=== PATIENT | male | born 1975 | race Caucasian/White ===

== ENCOUNTER 2017-10-17 13:18 | Inpatient (IN) ==
[2017-10-17 13:21] VITALS: BMI 20.5
[2017-10-17] MEDS ORDERED: SODIUM CHLORIDE 1,000 ML IV STA (13:36)
[2017-10-17] MEDS ORDERED: VANCOMYCIN 1 GM in SODIUM CHLORIDE 250 ML IV STA (13:37)
[2017-10-17] MEDS ORDERED: MORPHINE 2 MG/ML SYRINGE IVP STA (13:39)
[2017-10-17] MEDS ORDERED: ZOFRAN 4 MG/2 ML IVP STA (13:39)
--- NOTE | 2017-10-17 14:13 | CT ---
EXAM: CT scan of the left knee without contrast HISTORY: Trauma, swelling, redness, medial left knee. TECHNIQUE: Helical imaging of the left knee was performed without contrast. Axial images and collado l and sagittal reconstructions were provided for interpretation. FINDINGS: No acute fractures are seen. The patella appears intact. There is no joint effusion. The proximal fibula appears intact. There does appear to be soft tissue swelling seen along the medial s oft tissues of the left knee. No obvious fluid collections are seen. IMPRESSION: No acute fracture dislocation seen within the left knee. Soft tissue swelling seen along the medial aspect of the left knee.
[2017-10-17] MEDS ORDERED: TORADOL IVP STA (14:26)
[2017-10-17] MEDS ORDERED: DILAUDID IVP STA ×2 (15:05→18:15)
--- NOTE | 2017-10-17 16:31 | ED.PDOC ---
General ED Provider: Dr. LACY REBOLLEDO-ER Chief Complaint: Abscess Stated Complaint: karissa got an abscess--this happened last year--he ges mosquito bites that get infected Time Seen by Physician: 13:20 Mode of Arrival: Wheelchair Information Source: Patient Exam Limitations: No limitations Nursing and Triage Documentation Reviewed and Agree: Yes Reviewed sepsis parameters & appropriate labs ordered?: Yes System Inflammatory Response Syndrome: Not Applicable Sepsis Protocol: For patient's 13 years and over: Temp is 96.8 and below OR 101 and greater Pulse >90 BPM Resp >20/minute Acutely Altered Mental Status Are patient's symptoms suggestive of a new infection, such as: -Pneumonia -Skin, Soft Tissue -Endocarditis -UTI -Bone, Joint Infection -Implantable Device -Acute Abdominal Infection -Wound Infection -Meningitis -Blood Stream Catheter Infection -Unknown Skin Complaint Exam - Skin/Soft Tissue Complaint/Exam Onset/Duration: 3 days Symptoms Are: Still present Timing: Constant Initial Severity: Mild Current Severity: Moderate Location: right thigh Character: Reports: Redness, Swelling, Raised, Painful Aggravating: Reports: Touch Associated Signs and Symptoms: Reports: Fever, Chills, Tenderness Related History: Reports: Recent trauma Related Surgical History: Reports: None Recent Exposure to Others w/Similar Symptoms: No Skin Findings: Present: Erythema, Induration, Fluctuant mass Joint Tenderness Present: No Differential Diagnoses: Abscess, Cellulitis, Infection Review of Systems - Review Of Systems Constitutional: Reports: Chills, Fever, Weakness Eyes: Reports: No symptoms Ears, Nose, Mouth, Throat: Reports: No symptoms Respiratory: Reports: No symptoms Cardiac: Reports: No symptoms GI: Reports: No symptoms : Reports: No symptoms Musculoskeletal: Reports: No symptoms Skin: Reports: Lumps Neurological: Reports: No symptoms Endocrine: Reports: No symptoms Hematologic/Lymphatic: Reports: No symptoms All Other Systems: Reviewed and Negative Past Medical History - Past Medical History Previously Healthy: No Endocrine: Reports: Unknown Cardiovascular: Reports: Unknown Respiratory: Reports: Unknown Hematological: Reports: Unknown Gastrointestinal: Reports: Unknown Genitourinary: Reports: Unknown Neuro/Psych: Reports: Unknown Musculoskeletal: Reports: Unknown Cancer: Reports: Unknown - Surgical History General Surgical History: Reports: Unknown - Family History Family History: Reports: Unknown - Social History Smoking Status: Current every day smoker Hx Substance Use: No Alcohol Screening: None Physical Exam - Physical Exam Appearance: Well-appearing, No pain distress, Well-nourished Pain Distress: Moderate Eyes: BHUPENDRA, EOMI, Conjunctiva clear ENT: Ears normal, Nose normal, Oropharynx normal Neck: Supple Respiratory: Airway patent Cardiovascular: RRR GI/: Soft Musculoskeletal: Normal strength, ROM intact, No edema, No calf tenderness Skin: Warm Neurological: Sensation intact Psychiatric: Affect appropriate, Mood appropriate Interpretation - Radiology Interpretation Radiology Interpretation By: Radiologist Radiology Results: Negative Physician Notification - Case Discussed Physician Notified: dr [email or web address] Time of Notification: 16:32 Critical Care Note - Critical Care Note Total Time (mins): 0 Course - Course Hematology/Chemistry: 10/17/17 13:53 10/17/17 13:53 Orders, Labs, Meds: Lab Review 10/17/17 10/17/17 13:53 13:53 WBC 6.44 RBC 4.11 L Hgb 11.8 L Hct 34.7 L MCV 84.4 MCH 28.7 MCHC 34.0 RDW Coeff of Rosalie 15.4 H Plt Count 210 Immature Gran % (Auto) 0.3 Neut % (Auto) 73.1 Lymph % (Auto) 4.7 L [place] % (Auto) 0.6 Eos % (Auto) 21.1 H Baso % (Auto) 0.2 Immature Gran # (Auto) 0.0 Neut # (Auto) 4.7 Lymph # (Auto) 0.3 L [place] # (Auto) 0.0 L Eos # (Auto) 1.4 H Baso # (Auto) 0.0 Sodium 137 Potassium 3.8 Chloride 107 Carbon Dioxide 19 L Anion Gap 14.8 BUN 15 Creatinine 0.91 Estimated GFR (MDRD) 91.00 BUN/Creatinine Ratio 16.48 Glucose 109 H Calcium 8.5 Total Bilirubin 0.5 AST 17 ALT 12 Alkaline Phosphatase 44 L Total Protein 7.2 Albumin 3.3 L Globulin 3.9 Albumin/Globulin Ratio 0.85 Orders Category Date Time Status ED IV/MEDIPORT/POWERPORT .ONCE EMERGENCY 10/17/17 13:36 Active BLOOD CULTURE (ED ONLY) Stat LAB 10/17/17 13:53 Received CBC W/ AUTO DIFF Stat LAB 10/17/17 13:53 Completed COMPREHENSIVE METABOLIC PANEL Stat LAB 10/17/17 13:53 Completed URINALYSIS C & S IF INDICATED Stat LAB 10/17/17 13:36 Uncollected 0.9 % Sodium Chloride [Saline Flush] MEDS 10/17/17 13:36 Ordered 1 syr IVF PRN PRN Hydromorphone HCl [Dilaudid] MEDS 10/17/17 15:05 Discontinued 1 mg IVP ONCE STA Ketorolac Tromethamine [Toradol] MEDS 10/17/17 14:26 Discontinued 30 mg IVP ONCE STA Morphine Sulfate [Morphine 2 mg/ml Syringe] MEDS 10/17/17 13:39 Discontinued 2 mg IVP ONCE STA Ondansetron HCl/Pf [Zofran 4 mg/2 ml] MEDS 10/17/17 13:39 Discontinued 4 mg IVP ONCE STA Sodium Chloride 0.9% [Sodium Chloride] 1,000 ml MEDS 10/17/17 13:36 Active IV 100 mls/hr Vancomycin HCl [Vancomycin] 1 gm MEDS 10/17/17 13:37 Discontinued 0.9 % Sodium Chloride [Sodium Chloride] [address] KNEE LEFT WITHOUT CONTRAST Stat RADS 10/17/17 13:37 Completed Medications Generic Name Dose Route Start Last Admin Trade Name Freq PRN Reason Stop Dose Admin Sodium Chloride 1,000 mls @ 100 mls/hr 10/17/17 13:36 10/17/17 14:11 Sodium Chloride IV 10/17/17 23:35 100 mls/hr .Q10H STA Administration Sodium Chloride 1 syr 10/17/17 13:36 10/17/17 14:11 Saline Flush IVF 1 syr PRN PRN Administration To flush IV Discontinued Medications Generic Name Dose Route Start Last Admin Trade Name Freq PRN Reason Stop Dose Admin Hydromorphone HCl 1 mg 10/17/17 15:05 10/17/17 15:12 Dilaudid IVP 10/17/17 15:06 1 mg ONCE STA Administration Vancomycin HCl 1 gm/ Sodium 250 mls @ 250 mls/hr 10/17/17 13:37 10/17/17 14: 11 Chloride IV 10/17/17 14:36 250 mls/hr ONCE STA Administration Ketorolac Tromethamine 30 mg 10/17/17 14:26 10/17/17 14:32 Toradol IVP 10/17/17 14:27 30 mg ONCE STA Administration Morphine Sulfate 2 mg 10/17/17 13:39 10/17/17 14:09 Morphine 2 Mg/Ml Syringe IVP 10/17/17 13:40 2 mg ONCE STA Administration Ondansetron HCl 4 mg 10/17/17 13:39 10/17/17 14:08 Zofran 4 Mg/2 Ml IVP 10/17/17 13:40 4 mg ONCE STA Administration Vital Signs: Temp Pulse Resp BP Pulse Ox 10/17/17 13:19 103.5 F H 104 H 16 97/60 97 Departure - Departure Time of Disposition: 16:32 Disposition: ADMITTED INPATIENT Discharge Problem: Abscess Instructions: Abscess (ED) Condition: Good Pt referred to PMD for follow-up: No IPMP verified?: No Allergies/Adverse Reactions: Allergies Sulfa (Sulfonamide Antibiotics) Adverse Reaction (Verified 10/17/17 13:21) Home Medications: Ambulatory Orders 1 [No Reported Medications] 10/17/17 Disposition Discussed With: Patient
[2017-10-17] MEDS ORDERED: TYLENOL PO PRN (16:33)
[2017-10-17] MEDS ORDERED: DILAUDID IVP PRN (16:36)
[2017-10-17] MEDS ORDERED: ZOFRAN 4 MG/2 ML IVP PRN (16:37)
[2017-10-17] MEDS ORDERED: SODIUM CHLORIDE 1,000 ML IV SCH (17:00)
[2017-10-17] MEDS ORDERED: DILAUDID 4 MG/ML SYRINGE ONE (18:32)
[2017-10-17] MEDS ORDERED: ROCEPHIN ONE (18:33)
[2017-10-17] MEDS ORDERED: SODIUM CHLORIDE 50 ML IV ONE (18:42)
[2017-10-17] MEDS: ROCEPHIN 1 GM in SODIUM CHLORIDE 50 ML IV SCH (19:24)
[2017-10-17] MEDS: VANCOMYCIN 1 GM in SODIUM CHLORIDE 250 ML IV SCH (20:46)
[2017-10-18] MEDS: NORCO 7.5-325 PO PRN ×3 (04:36→17:40)
[2017-10-18] MEDS ORDERED: DILAUDID 2 MG/ML SYRINGE IVP PRN (07:07)
[2017-10-18] MEDS: LOVENOX SUBCUT SCH (09:30)
[2017-10-18] MEDS: ROCEPHIN 1 GM in SODIUM CHLORIDE 50 ML IV SCH (09:30)
[2017-10-18] MEDS: VANCOMYCIN 1 GM in SODIUM CHLORIDE 250 ML IV SCH ×2 (10:41→20:46)
[2017-10-18] MEDS ORDERED: BENADRYL PO STA (15:10)
[2017-10-18] MEDS: ATARAX PO SCH (20:46)
[2017-10-19] MEDS: ATARAX PO SCH ×4 (00:37→17:02)
--- NOTE | 2017-10-19 08:56 | DI ---
EXAM: Radiographs, right foot HISTORY: Right foot pain, gouty arthritis. COMPARISON: None available. TECHNIQUE: Three views. FINDINGS: Bone mineralization is normal. There is no fracture or dislocation. Tiny erosions seen o n both sides of the second distal interphalangeal joint. Question similar findings at the third dist al interphalangeal joint. The joint spaces are maintained. No focal soft tissue abnormality is seen. IMPRESSION: Articular surface erosions of the second IP joint and possibly the third DIP joint which could be due to inflammatory arthritis.
[2017-10-19] MEDS: LOVENOX SUBCUT SCH (09:13)
[2017-10-19] MEDS: ROCEPHIN 1 GM in SODIUM CHLORIDE 50 ML IV SCH (09:13)
[2017-10-19] MEDS: VANCOMYCIN 1 GM in SODIUM CHLORIDE 250 ML IV SCH ×2 (10:16→19:59)
--- NOTE | 2017-10-19 10:53 | PN ---
DATE OF SERVICE: 10/18/17 SUBJECTIVE: The had been scratching and itching. He was given Benadryl but that did not help. This patient has multiple scabbed areas left forearm, forehead and also upper back as well as right. He also has a raised red area more or less rounded on the left medial knee. He had some redness on the knee but he claimed to have fallen and landed on his left knee. The redness in the left knee is less today than yesterday. This had been marked. He also has a red raised area slightly bigger about bigger than a quarter on the lateral thigh. That has drained today. The redness is less also. A culture will be done on that area. His right side of the face is somewhat prominent compared to the left but I'm no t sure wether that is just natural appearance. He claims that the scab areas on the forearm, hands, forearm and arm were do to mosquito bites. He was outside last weekend. The area in the thigh began some three days prior to presentation yesterday to the emergency room. The patient's is alert and oriented times four. He is complaining of pain and itching. I do not see any erythema or popular eruptions that would indicate some allergy from the antibiotic that he is receiving. He also had admitted that he had been itching and scratching himself prior to presentation to the hospital. The patient admits smoking. LUNGS: No rales although breath sounds are somewhat diminished. HEART: Normal sinus rhythm NECK: no masses and bruit ABDOMEN: No tenderness LOWER EXTREMITY: The patient also has scabbed areas on both legs. He has some deformities in the right big toe slightly bigger than the left side. He claims that he has pain and swelling from time to time and he felt like he might have gouty arthritis. I told him that I would try to make a diagnosis and if that would be documented that we will try to give him medications. I did advised him also that the pain medication is not designed to relieve him completely of the pain. Relieving completely of the pain might produce respiratory depression and it maybe a danger to him. Also the medication for itching may not relieve the itching completely. We will try to give him Atarax 20mg every 6 hours. I had advised him to cut his finger nails yesterday since they are longer and there is some dirt underneath and that might have cause the spread of the infection. He again claims that the areas that have scabs on the forearm were due to mosquito bites. Did advise him to have a shower today and change clothes and we will give him the gown from the hospital and his bed would be stripped. His clothes should go home. I had ordered a culture of the wound in the right thigh as well as the Atarax, X-ray of the foot and Uric acid. The patient appeared to be satisfied at this time and he had no questions. I left the room and the nurse did catch him while I am making rounds for the rest of the patients, telling me that Mr. Mckeon wants to talk to him. I get go back to his room and he wanted to know when he can go home. I told him I really do not know that. If I tell him that he can go home in two days I'm mostly probably lying and do not have any basis. I told him that I will make the decisions from day to day depending upon how he has improved. That seemed to satisfy him and his was present during the course of the discussion. LENNIE
--- NOTE | 2017-10-19 15:27 | CT ---
EXAM: CT of the chest without contrast History: Chest pain, leg infection, hypereosinophilia Technique: Multiplanar CT images through the thorax were obtained without the administration of IV c ontrast Findings: Heart size is normal. No pericardial effusion. 3.8 cm ectatic ascending aorta. Borderli ne enlarged bilateral axillary lymph nodes measuring up to 1 cm in short axis diameter. 1.1 cm border line enlarged AP window mediastinal lymph node. 1.4 cm subcarinal lymph node. Evaluation for hilar lymph nodes is limited due to the lack of contrast administration. Mild diffuse bronchial wall thick ening. Right middle lobe nodular consolidation. There are several sub-centimeter right lung nodules measuring up to 6 mm. A few sub-centimeter left lung nodules measuring up to 4 mm. Apical parasepta l emphysema. No pleural fluid and no pneumothorax. Within the visualized upper abdomen, no grossly acute findings identified within limitations of the n oncontrast study. No acute osseous abnormalities. Impression: 1. Right middle lobe nodular consolidation most compatible with infectious or inflammatory process. Follow-up recommended. 2. Nonspecific sub-centimeter bilateral lung nodules require follow-up. Follow-up chest CT recommend ed in 3-6 months. 3. Borderline bilateral axillary lymphadenopathy and borderline enlarged mediastinal lymph nodes. E valuation for hilar lymph nodes is limited due to the lack of IV contrast. Findings could be infecti ous/inflammatory or neoplastic. Follow-up recommended. 4. Apical paraseptal emphysema
--- NOTE | 2017-10-19 16:40 | HP ---
DATE OF SERVICE: 10/17/17 CHIEF COMPLAINT: " I got an abscess" HISTORY OF PRESENT ILLNESS: The patient had noted a raised red area on the right later thigh about mid portion. The area was increasing in size tenderness. He presented to the emergency room because of the problem. He claimed he also had the same problem a year ago. Also complained of multiple mosquito bites in the forearm as well as the neck and back. He claimed that he stay out in the yard during the night two days ago. The patient was evaluated by Dr. Lemuel Hameed and the patient's vital signs at presentation showed a temperature of 103.5, pulse 104, respiratory rate 16, blood pressure 97/60 with oxygen saturation 97%. The patient had blood cultures initiated in the emergency room plus wound culture. He was given Toradol 30mg intervenously as well Hydromorphone 1 gram intervenously. Intervenous fluids were initiated consisting of normal saline. He also received morphine 2mg intervenously. His WBC was normal 6,440, hgb 11.8 , hct 34.7 moderately below normal. Eosinophil % 21.1%. Neutrophil 73.1. Plt count normal 210,000. CMP is within normal. This patient was given Vancomycin after the blood culture was obtained and then admitted to the hospital. The patient fell and landed on his left knee. The CAT of the knee left side showed no remarkable abnormalities. This patient however also has a red raised area on the medial side of the left knee, all these areas are markedly tender to touch. PAST PERSONAL HISTORY: The patient had a dog bite in the face and did have laceration involving the Lacrimal duct. This was repaired by a plastic surgeon at age 8. He has recurrent swelling in the feet and the lateral leg. The patient had injury to the left elbow and produced limited movement. Also claimed to have been diagnosed with PTSD. He had been diagnosed with attention deficit disorder, history of anxiety and depression. History of paranoid disorder, history of schizophrenia and had suicidal attempt. The patient denied any psychiatric treatment for the above problem. He had been in [place] and was seen twice in the hospital; one for the abscess in the wrist left. He also was in a [facility] because of dental disorder probably abscess. FAMILY HISTORY: Brother is in good health Father has cancer and history of stroke in the family Mother had history of malignancy cancer and heart disease as well as thyroid disease. History of stroke in the family and other members have from CVA. SOCIAL HISTORY: The patient is and resides with his . The patient had been smoking since he was 11 years of age and continues to do that. MEDICATIONS: None ALLERGIES: Sulfonamide REVIEW OF SYSTEMS: CONSTITUTIONAL: The patient had fever, moderately high but no chills. He did not feel very well. GUSSET STITCHER: Denies any headaches or visual disturbances. No history of syncope or seizure disorder VISUAL: Denies any double vision, blurred vision or transient loss of vision. AUDITORY: Hearing is adequate, No tinnitus, No pain or drainage. RESPIRATORY: No significant cough and shortness of breath. CARDIOVASCULAR: Denies any chest pain or chest tightness or oppression GASTROINTESTINAL: The patient's appetite seemed to have remained somewhat in spite of the illness. No abdominal pain, no diarrhea and no vomiting. GENITOURINARY: Denies any pain on urination MUSCULOSKELETAL: The patient is complaining of pain and tenderness on both feet intermittently with significant swelling that he isn't able to walk. He felt that he might have had an attack of gout. The patient doesn't have any active redness or swelling at this time. The right big toe and first MTP area seemed to be slightly bigger than the last. Left elbow has limited range of motion secondary to previous injury. ENDOCRINE: No polydipsia or other symptoms related to the endocrine system INTEGUMENT: The patient has intermittent pleuritis. He has multiple skin lesions in both forearms claimed to be mosquitos bites. They are crusting. He does have a raised red area on the medial knee left side and the lateral side mid thigh right. There is an area above the active lesion that had been scared and the patient claimed that that was a previous site of infection and he had not consulted a doctor at that time. HEMATOLOGIC: The patient denied any history of prolonged bleeding. PSYCHIATRIC: The patient had multiple symptoms referring the psychiatric system. He claimed to have been diagnosed with ADD, depression, anxiety PTSD and schizophrenia. PHYSICAL EXAMINATION: GENERAL: We have a 42 year old male admitted to the hospital because of moderately high temperature; 103.5 with raised area on the right lateral thigh maybe about the size close to the half dollar. The area is markedly tender as well as the surrounding area. He also had a similar area on the left medial knee and also markedly tender. There is some redness on the knee but maybe due to the injury. He claimed that he fell and landed on his left knee. CAT scan of the left knee done at the emergency room showed no eda abnormalities. VITAL SIGNS: Temperature 103.5, pulse 104, blood pressure 97/60, respiratory rate 16 with oxygen saturation 97 at room air. 5'8" 135 pounds BMI 20.5. HEAD: Unremarkable. No active dermitis. FACE: The patient has several areas in the forehead that are raised and probably due to mosquito bite according to him. No areas of drainage. The face is asymmetrical with the right more than prominent then the left side. There is no significant tenderness to palpation in the maxillary sinus areas under pressure. EYES: Pupils equal/reactive to light. Conjunctivae slightly pale. Sclerae not icteric. 3mm in size and rounded. MOUTH: Unremarkable THROAT: No inflammation, tumors or exudate. NECK: No masses. No bruit. No tenderness. No rigidity. No adenitis. CHEST: Essentially symmetrical and equal with scabbing ulcerations that are dry in the upper thorax. LUNGS: Clear to auscultation in both sides but the breath sounds are diminished HEART: Audible and regular with good tones. No murmurs. Not tachycardiac at the time of my examination on the floor. ABDOMEN: Flat, soft with no remarkably tenderness. No guarding. Bowel sounds are active. No masses palpable. EXTERNAL GENITALIA: Not examined RECTAL: Not performed. LOWER EXTREMITIES: The patient has on the right lateral thigh mid portion a raised red area markedly tender measuring close to a half dollar in size. He also has another area on the left medial knee measuring a joy and a quarter size. This area was also tender and no pustules on either side. These areas are markedly tender including the knee but probably from the injury. Also has some scabbing areas in the leg. There are no draining areas. Anterior tibials are present, difficult to find the posterior tibials. The right big toe and first MTP joint is slightly bigger than the left side. There is no redness at this time. UPPER EXTREMITIES: Again the left elbow has limited range of motion because of previous injury. The finger nails are long. I advised him to cut the finger nails. ASSESSMENT: 1. Acute febrile illness maybe secondary to Carbuncle 2. Eosinophilia, we will see if this would decrease. 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 3. History of ADD 4. History of PTSD 5. History of Schizophrenia 6. Moderate anemia etiology undetermined 7. Chronic tobacco use and abuse persistent PROGNOSIS: Guarded. MTDD
[2017-10-20] MEDS: ATARAX PO SCH ×5 (00:10→23:08)
[2017-10-20] MEDS: LOVENOX SUBCUT SCH (10:55)
[2017-10-20] MEDS: VANCOMYCIN 1 GM in SODIUM CHLORIDE 250 ML IV SCH ×2 (10:58→20:45)
[2017-10-20] MEDS: NYSTATIN ORAL SUSP PO SCH ×3 (16:57→20:45)
[2017-10-20] MEDS ORDERED: ATIVAN PO STA (22:35)
[2017-10-20] MEDS ORDERED: ATIVAN ONE (22:39)
[2017-10-21] MEDS: ATARAX PO SCH ×4 (06:14→23:42)
[2017-10-21] MEDS: NYSTATIN ORAL SUSP PO SCH ×4 (06:14→20:09)
[2017-10-21] MEDS: VANCOMYCIN 1 GM in SODIUM CHLORIDE 250 ML IV SCH ×2 (08:24→20:10)
[2017-10-21] MEDS: LOVENOX SUBCUT SCH (08:29)
--- NOTE | 2017-10-21 12:00 | PN ---
DATE OF VISIT: 10/19/17 The patient is alert and oriented. I did ask him about his past personal history. We had not had any record at [facility] for coming to the emergency room. He told me he was in [place] in 2018 and had visited the emergency room twice for abscess. He also had been to [facility], [facility], for dental abscess. Blood had been drawn according to his during this visit and I would like to look at the previous CBC. The patient, today beginning at 6 a.m. did have a low grade temperature at 100.3 and then at 10 o'clock it was 99.6 and at 2 p.m. 99.2 and 3 p.m. is 99.2 orally. The Tylenol had been discontinued. I may have to discontinue the Hydrocodone with Tylenol to see if these temperatures would have any fluctuations above normal. His pulse rate had been between 75 to 80 the whole day until 2 o'clock on 10/19/2017. The blood pressure had fluctuated slightly at 6 a.m. and was 98/58, 10 a.m. 106/60 and 2 p.m. 92/55. Respiratory rate from 6 o'clock was 12 and 12 at 10 and 18 at 2 p.m. today. Oxygen saturation varied from 94 at 6 o'clock, 95 at 10, 97 at 2 p.m. The CBC today showed persistent moderate anemia closer to the lower normal MCV and MCH, maybe related somewhat to iron deficiency. The RDW was slightly above normal at 15.4 and 15.5. The automated eosinophils today was 34.5. It was 21.1 yesterday. I asked for a manual and the manual eosinophils is 39.0 . The absolute eosinophil count was 2,500 according to Tiki, a technologist at the lab. This patient could very well have some skin problems secondary to hypereosinophilic status or syndrome. Cardiology consultation is requested to rule out any myocardial problems with regards to the hypereosinophilic problem. ESR plus CRP, as well as XIMENA screen was ordered. This patient at this time does not have any overt signs of vasculitis. I had asked the patient to sign a release of records to [place] to see if there indeed the eosinophils were elevated at that time or normal. I advised or informed the patient that I may seek a consultation with a Meat [employer]/ Oncologist tomorrow and that will be in [place], [place]. I would like to transfer this patient to their services. CT of the scan of the chest was ordered today to rule out any pulmonary involvement secondary to the hypereosinophilic syndrome. The skin culture did show light growth of gram positive cocci, probably staph. This patient is receiving Vancomycin. The GFR is normal. No signs of any nephritis at this time. I will obtain another CBC tomorrow, as well as CMP. Peripheral smear also was requested to be examined by the pathologist. LENNIE
--- NOTE | 2017-10-21 13:02 | PN ---
CONVERSATION NOTE: 10/20/2017 Conversation note with Storm Mckeon. The conversation was carried in room 102 where the patient is. Allegra Loaiza RN was with me in the room and Mr. Mckeon's was also there. I asked Mr. Mckeon if his would be able to stay in the room, since I am going to discuss his history that I had obtained from [place]. He told me that she could stay. I then asked his how long they had been together and she said three years. They had been together in [place]. He mentioned about his admission to the hospital in 2016. His mentioned that she remembered that and she said that he had gonorrhea and he gave it to her. She also was treated. She preceded to mention that in that it had also mentioned that he was positive previously for HIV. She also mentioned the other visit April and also August 28, 2016 and June 28, 2017. Also mentioned that he left the emergency room without being completely treated on June 28 visit. It was also mentioned of the skin problems that he had involving his buttocks, as well as his upper legs, probably thigh. I did inform the patient also of the findings on the chest CT showing pneumonia and other findings. I did not see any chest x-ray in his previous records that I had received. I did not have the reports from Dr. Horton for the heart test that was done including the consultation. I did inform him that maybe the skin problems that he has including the lung problems that we see on CT scan maybe related to the increased eosinophils in his blood count. I did tell him that I would need to refer him to someone outside of this facility. I do not have the speciality. This happened in the late morning hours. The patient about 5 p.m. or there about was wanting to talk to me. A message that I got from the office that he wanted to known when he could go home, so I went over to the floor where his room is and I was waiting for Allegra Loaiza before I would walk into his room, but his had put him in a wheelchair and did push him in the hospital corridor and they came up to me while I was waiting for Allegra Loaiza RN. He wanted to know when he can go home and I told him I do not know. I told him that I am planning again on referring him to some specialties that we do not have in this hospital. I only have one subspecialty, which is cardiology which I already have engaged. I may send him to [place], which is about 50 or 60 miles away from us and if not it would be to [place], [place] if Estrella believes that he probably should be sent to a medical center. He wanted to know whether he can go home first and I told him that I don't know that. I would answer that as soon as I could talk to the subspecialities and what they would feel like they would like to do, accept him now or send him on another day and if that would be the case then maybe he can go home, but he is not ready to go home at this point. The patient's vital signs today showed a temperature ranging from 98.7 to 99.2. Pulse fluctuated from 81 to 68. Blood pressure 98/70 to 106/67. Respirations 16-20. Oxygen saturation 98 to 99 at room air. The area on the right lateral thigh is drying and the area in the medial knee also is resolving. The redness is less, as well as the tenderness and induration. The patient was also advised that he had a MRSA, a bacteria that is resistant to Penicillin, but it is sensitive to Vancomycin, which he had received right from the time he was in the emergency room to now. LENNIE
[2017-10-21] MEDS ORDERED: ATIVAN PO STA (14:05)
[2017-10-21] MEDS: NORCO 7.5-325 PO PRN (20:04)
[2017-10-22] MEDS: ATARAX PO SCH (05:28)
[2017-10-22] MEDS: NYSTATIN ORAL SUSP PO SCH ×2 (05:30→11:23)
[2017-10-22] MEDS: VANCOMYCIN 1 GM in SODIUM CHLORIDE 250 ML IV SCH (09:53)
[2017-10-22] MEDS: LOVENOX SUBCUT SCH (09:58)
[2017-10-22 11:30] VITALS: BP 98/62; TEMP 98.5
--- NOTE | 2017-10-24 10:29 | ECHO2D ---
Date of Exam: 10/20/17 Ordering Physician: DR. JORDAN ALMAGUER Room # : 102 Reason for Echo: SHORT OF BREATH M-Mode Normal Adult Results LV Dimensions Normal Adult Results AoV Opening excursions >1.6 >1.6 LVEDD-base- 3.5-5.8 4.1 Ao root dimensions 2.0-3.7 3.7 LVESD-base- 3.1-4.6 L. Atrium dimensions 1.9-3.8 3.8 Post. Wall thickness 0.8-1.1 1.2 IV septum (thickness) 0.7-1.2 1.1 Post. Wall excursion 0.72-1.3 NORMAL Septal motion NORMAL Systolic motion R. Ventricular cavity 1.5-2.0 NORMAL LVEF 60% 56% Paradoxical septal wall motion NORMAL 2-D : 2-D M Mode Echocardiogram was performed using apical four chamber and left parasternal long and short axis views. Mitral, tricuspid and aortic valves appear to be normal. Contractility of the left ventricle seems to be normal, so is the cavity size. Left atrial cavity size and aortic root appear to be normal. There is no pericardial effusion. There is no thrombus noted in the left ventricular or left aortic cavity. No mitral valve prolapse noted. M-MODE: MV: NORMAL AV: NORMAL TV: NORMAL PV: CHAMBER SIZE: NORMAL WALL MOTION: NORMAL PERICARDIUM: NORMAL INTERPRETATION: 1. NORMAL 2 "D" "M" MODE ECHO MTDD
--- NOTE | 2017-10-28 09:59 | CONS ---
DATE OF SERVICE: 10/19/17 CONSULT FOLLOWUP SUBJECTIVE: The patient was seen on consultation because of low grade fever with history of abscess with possibility of ruling cardiomyopathy and or infectious endocarditis. REVIEW OF SYSTEMS: CONSTITUTIONAL: No night sweats. No fatigue, malaise, lethargy. No fever or chills. HEENT: Eyes: No visual changes. No eye pain. No eye discharge. ENT: No runny nose. No epistaxis. No sinus pain. No sore throat. No odynophagia. No ear pain. No congestion. RESPIRATORY: No cough, no congestion. No hemoptysis. CARDIOVASCULAR: No angina symptoms. No CHF symptoms. No atypical chest pain for CAD. No palpitations. No shortness of breath. No PND. No orthopnea. GASTROINTESTINAL: No abdominal pain. No nausea or vomiting. No diarrhea or constipation. No hematemesis. No hematochezia. Appetite is improving. GENITOURINARY: No urgency. No frequency. No dysuria. No hematuria. No obstructive symptoms. No discharge. No pain. No significant abnormal bleeding. MUSCULOSKELETAL: Mild aches and pains all over. No joint swelling. No arthritis. NEUROLOGICAL: No headache. No neck pain. No syncope. No seizures. No dizziness. PSYCHIATRIC: Not anxious. No depression. No suicidal thoughts. No homicidal thoughts. SKIN: No rash. No lesions. No wounds. ENDOCRINE: No unexplained weight loss. No weight gain. HEMATOLOGIC/LYMPHATIC: No anemia. No purpura. No petechiae. No prolonged or excessive bleeding. No palpable lymph nodes. PHYSICAL EXAMINATION: GENERAL: The patient is oriented to time, place and person. VITAL SIGNS: pulse 70, respiratory rate 15, blood pressure 130/70. 5'8" and 135 pounds BMI 21. HEENT: Head normocephalic, atraumatic. Eyes: Extraocular muscles are intact. Pupils are equal, round and reactive to light and accommodation. Ears: No lesions. Nose appeared normal. Throat: No exudate or erythema. Small infected scabs on the face and all over the body. He says that it happened from mosquito bites. NECK: Supple. No JVD, no carotid bruit. No lymphadenopathy or thyromegaly. LUNGS: Clear to auscultation. Percussion note normal. Chest symmetrical. HEART: S1, S2, no S3. No murmurs. No cyanosis or clubbing. No ascites. Pulses: Dorsalis pedis and posterior tibial pulses +2 both sides. ABDOMEN: Soft. Nontender. Bowel sounds active. No CVA tenderness. No mass felt. EXTREMITIES: No edema. Full range of motion of all extremities, equal. NEUROLOGIC: No focal deficit. Cranial nerves II through XII are grossly intact. No headache, no double vision or headache. SKIN: Not dry. Intact. Turgor - normal. LYMPHATIC: No palpable lymph nodes/no lymphedema. MUSCULOSKELETAL: Normal joints with no swelling. Muscle tone is normal. LABS: EKG sinus rhythm, no acute changes. RECOMMENDATIONS: 1. Will do echocardiogram to evaluate LV function and also to seek for any echogenic areas consistent with infectious endocarditis. The vegetation has to be more than 2-3mm before it could be visualized. 2. Condition cardiovascular rincon seems to stable with no evidence of CHF or clinical evidence of infectious endocarditis. Thanks for referral, will follow. LENNIE
--- NOTE | 2017-10-28 10:03 | CONS ---
DATE OF SERVICE: 10/20/17 CONSULT FOLLOWUP SUBJECTIVE: The patient does not have any symptoms of CHF or coronary insufficiency. The patient has multiple abscesses. The patient is being investigated for Eosinophilic syndrome. REVIEW OF SYSTEMS: CONSTITUTIONAL: No night sweats. No fatigue, malaise, lethargy. No fever or chills. HEENT: Eyes: No visual changes. No eye pain. No eye discharge. ENT: No runny nose. No epistaxis. No sinus pain. No sore throat. No odynophagia. No ear pain. No congestion. RESPIRATORY: No cough, no congestion. No hemoptysis. CARDIOVASCULAR: No angina symptoms. No CHF symptoms. No atypical chest pain for CAD. No palpitations. No shortness of breath. GASTROINTESTINAL: No abdominal pain. No nausea or vomiting. No diarrhea or constipation. No hematemesis. No hematochezia. GENITOURINARY: No urgency. No frequency. No dysuria. No hematuria. No obstructive symptoms. No discharge. No pain. No significant abnormal bleeding. MUSCULOSKELETAL: No musculoskeletal pain. No joint swelling. No arthritis. NEUROLOGICAL: No headache. No neck pain. No syncope. No seizures. No dizziness. PSYCHIATRIC: Not anxious. No depression. No suicidal thoughts. No homicidal thoughts. SKIN: No rash. No lesions. No wounds. ENDOCRINE: No unexplained weight loss. No weight gain. HEMATOLOGIC/LYMPHATIC: No anemia. No purpura. No petechiae. No prolonged or excessive bleeding. No palpable lymph nodes. PHYSICAL EXAMINATION: HEENT: Head normocephalic, atraumatic. Eyes: Extraocular muscles are intact. Pupils are equal, round and reactive to light and accommodation. Ears: No lesions. Nose appeared normal. Throat: No exudate or erythema. NECK: Supple. No JVP, no carotid bruit. No lymphadenopathy or thyromegaly. LUNGS: Decreased breath sounds but clear to auscultation. Percussion note normal. Chest symmetrical. HEART: S1, S2, no S3. No murmurs. No cyanosis or clubbing. No ascites. Pulses: Dorsalis pedis and posterior tibial pulses +1 to +2 both sides. ABDOMEN: Soft. Nontender. Bowel sounds active. No CVA tenderness. No mass felt. EXTREMITIES: No edema. Full range of motion of all extremities, equal. NEUROLOGIC: No focal deficit. Cranial nerves II through XII are grossly intact. No headache, no double vision or headache. SKIN: Not dry. Intact. Turgor - normal. LYMPHATIC: No palpable lymph nodes/no lymphedema. MUSCULOSKELETAL: Normal joints with no swelling. Muscle tone is normal. LABS: Echo showed normal LV contractility and normal valves. Cardiovascular status is stable. RECOMMENDATIONS: 1. I will sign out of the case. CONDITION: Stable. MTDD
--- NOTE | 2017-10-28 10:04 | CONS ---
10/19/17/: Level 5 10/20/17: Intermediate MTDD
--- NOTE | 2017-11-25 14:53 | DS ---
DATE OF SERVICE: 10/22/17 PATIENT IDENTIFICATION: 42-year-old male was sent to the emergency room because of raised red area, right lateral thigh, markedly tender with some milky bloody drainage. Also was febrile. Temperature recorded 103.5, pulse 104. CBC showed normal WBC with markedly increased eosinophil 21.1%. Chemistries were normal. Culture of the wound on the right lateral leg was done as well as blood culture prior to transfer to the room. The patient also received Vancomycin 1 gm intravenously at the emergency room. The patient claimed to have landed on his knee when he fell today. CT scan of the knee, left side showed no remarkable abnormalities done at the emergency room. PAST HISTORY: The patient's past history consists of a dog bite to the face, a torn lacrimal duct was reconstructed by a plastic surgeon. Current swelling in the feet, lateral leg maybe gout, injury to left elbow producing limited range of motion. History of PTSD, ADD, anxiety and depression. The patient had a history of schizophrenia with paranoid component. He also had suicidal attempt a few years ago while he was in the [place]. He has several skin problems when he was still in [place]. The records obtained from [place] showed that he was HIV positive but not treated. The patient had not been on any medication when he presented to the emergency room. HOSPITAL COURSE: The patient was given a combination of Vancomycin 1 gm q.12 hr and Rocephin 1 gm initially and then daily. Wound culture on the right leg showed Staph Aureus , MSSA, sensitive to Vancomycin, M.I.C. 1. Wound culture right thigh done positive for Staph Aureus and MSSA. It is also sensitive to Vancomycin. Rocephin was discontinued and the patient was continued on Vancomycin. It is also sensitive to Tetracycline including the one in the right leg done 10/17/17. The patient's absolute eosinophil count is beyond 2,500. Cardiology consultation was requested and CT scan of the chest was done since the patient also was coughing. CT of the chest showed right middle lobe nodular consolidation compatible with infectious or inflammatory process. Followup recommended. Nonspecific subcentimeter bilateral lung nodules require followup 3 to 6 months, borderline bilateral axillary lymphadenopathy and borderline enlarged mediastinal lymph nodes evaluation for hilar lymph nodes is limited due to lack of IV contrast. Findings could be inflammatory or infectious. Followup is recommended. Also, showed apical paraseptal emphysema. Echocardiogram showed normal valves, normal chamber and wall motion and ejection fraction left ventricular is 56. The patient's fever had returned toward normal and the patient was feeling better. He also was itching and was giving Atarax. That seemed to reduce the pruritus. I had talked to the patient and his with regards to a referral to subspecialty because of his hypereosinophilia. I had contacted the military science teacher/oncologist in [place] and accepted the patient into his services but they haven't given him an appointment. I had given the phone number that was listed in the chart and had rechecked with the patient's that indeed that phone number is functional. I did tell them that the office in [place] would be calling them. If they don't call, they should let me know so I can inquire about the referral. He also was instructed to see me at the office in about one week, 10/31/17. He also was provided with the phone number of the clinic. He was given a prescription of Doxycycline 100 mg tablet to be taken two hours after breakfast and two hours after supper and to begin in the morning. Area of redness on the left knee has almost resolved completely and swelling and redness of the knees is resolved. The area of the right lateral thigh also had dried out and tenderness has reduced remarkably. The patient still has several areas that are nodular with scabs in the upper part of the posterior chest as well as both forearms as well as legs. This may be related to the hypereosinophilic syndrome. I had emphasized to them that we have a limited resources as to subspecialties. I had consulted a pipelines manager and that is the only subspecialty that we have. He needed to have military science teacher/oncologist, infectious disease, print finisher and other subspecialties to take care of his problems or make a definitive diagnosis. FINAL DIAGNOSES: 1. 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 RIGHT MIDDLE LOBE PNEUMONITIS MAYBE SECONDARY TO EOSINOPHILIC SYNDROME 3. MULTIPLE AREAS OF KANDI ENLARGEMENT MAYBE SECONDARY TO THE HYPEREOSINOPHILIC SYNDROME 4. STAPH AUREUS MSSA AND MRSA, BOTH ARE SENSITIVE TO VANCOMYCIN WELL DOXYCYCLINE. 5. HISTORY OF HIV NOT TREATED. NOTE: The patient's IgE is 3,891, normal 0 to 100. XIMENA screen negative. c-ANCA antibody negative. Anti-Proteinase 3 less than 3.5, atypical p-ANCA titer less than 1 is to 20 negative, p-ANCA antibody is 1 is to 20, again negative. Anti Myeloperoxidase less than 9.0. RPR negative. Hepatitis A antibody negative. Hepatitis B surface antigen negative. Hepatitis B core IgM antibody negative. Hepatitis C antibody less than 0.1. HIV RNA (PCR) 570,000 copies/mL, HIV1 RNA ( PCR) log10 5.756. MTDD
== END 2017-10-22 12:26 | disposition home or self-care (01) | DRG 602 ==
LOC: ED 13:18 → MEDSURG A 16:36
PROVIDERS: ADMIT General Practice; ATTEND General Practice
DX: L02.415 Cutaneous abscess of right lower limb (principal); B20 Human immunodeficiency virus [HIV] disease; F23 Brief psychotic disorder; M25.562 Pain in left knee; R50.9 Fever, unspecified; B95.61 Methicillin susceptible Staphylococcus aureus infection as the cause of diseases classified elsewhere; D72.1 Eosinophilia; D64.9 Anemia, unspecified; F17.219 Nicotine dependence, cigarettes, with unspecified nicotine-induced disorders; Z16.30 Resistance to unspecified antimicrobial drugs
CPT/HCPCS: 36415; 80053; 80074; 80202; 80306; 81001; 82607; 82785; 83520; 84145; 84550; 85007; 85025; 85651; 86038; 86140; 86256; 86592; 87040; 87070; 87081; 87086; 87186; 87536; 96365; 96375; 99232; 99255; 99284